=== PATIENT | male | born 1955 | race Hispanic/Latino ===

== ENCOUNTER → 2020-12-10 | Outpatient (CLI) | payer OTHER | END | disposition home or self-care (01) | LOC: RAH 08:03 | PROVIDERS: ATTEND Internal Medicine | DX: F17.200 Nicotine dependence, unspecified, uncomplicated (principal) | CPT/HCPCS: 76775 ==

== ENCOUNTER → 2021-02-02 | Outpatient (CLI) | payer OTHER ==
[~2021-02-02] MED LIST: IOHEXOL 350 MG/ML 100ML INFUS..BTL IV ONE
== END | disposition home or self-care (01) ==
LOC: RAH 07:35
PROVIDERS: ATTEND Internal Medicine Gastroenterology
DX: C18.7 Malignant neoplasm of sigmoid colon (principal); N20.0 Calculus of kidney
CPT/HCPCS: 74178; Q9967

== ENCOUNTER → 2021-02-10 | Outpatient (CLI) | payer OTHER | END | disposition home or self-care (01) | LOC: DAH 10:00 → EDSTATUS 02-16 09:15 | PROVIDERS: ATTEND Internal Medicine Gastroenterology | DX: U07.1 COVID-19 (principal); C18.7 Malignant neoplasm of sigmoid colon; R93.3 Abnormal findings on diagnostic imaging of other parts of digestive tract | CPT/HCPCS: 87426 ==

== ENCOUNTER 2021-03-30 06:25 | Day surgery (SDC) | payer OTHER ==
[~2021-03-30] VITALS: Ht 172.7 cm; Wt 88.0 kg
[~2021-03-30 06:25] MED LIST changes: +0.9%NACL 1000ML 1,000 ML IV ONE; +AEC81 PO; +ASCO100031 PO; +ATOR20TA65 PO; +CALC-1009 PO; +CYAN50009 PO; -IOHEXOL 350 MG/ML 100ML INFUS..BTL IV ONE; +LISI20TA24 PO; +METF-526 PO; +MV-M1TAB20 PO; +SAW450CA7 PO; +ZINC220T4 PO
[2021-03-30 07:30] VITALS: BP 122/62
[2021-03-30] MEDS ORDERED: FISHOIL PO (07:53)
[2021-03-30] MEDS ORDERED: PROPOFOL 10 MG/ML 20ML VIAL IV ONE (08:14)
[2021-03-30] MEDS ORDERED: EPHEDRINE SULFATE 50 MG/ML AMPULE ONE (08:26)
[2021-03-30 08:30] VITALS: BP 120/68
[2021-03-30 08:35] VITALS: BP 108/57
[2021-03-30 08:40] VITALS: BP 108/54
[2021-03-30 08:45] VITALS: BP 108/60
== END 2021-03-30 09:00 | disposition home or self-care (01) ==
LOC: DAH 06:25 → ENDO 06:25
PROVIDERS: ATTEND Internal Medicine Gastroenterology
DX: R93.3 Abnormal findings on diagnostic imaging of other parts of digestive tract (principal); C18.7 Malignant neoplasm of sigmoid colon; Z20.822 Contact with and (suspected) exposure to COVID-19; K62.89 Other specified diseases of anus and rectum; K59.04 Chronic idiopathic constipation; I10 Essential (primary) hypertension; E11.9 Type 2 diabetes mellitus without complications; E78.5 Hyperlipidemia, unspecified; F17.210 Nicotine dependence, cigarettes, uncomplicated; Z79.84 Long term (current) use of oral hypoglycemic drugs; Z79.82 Long term (current) use of aspirin; Z79.899 Other long term (current) drug therapy
CPT/HCPCS: 45341; 82948 ×2; 87635; 93005; A4215 ×2; A4221; A4222; A4223; A4606; A4620; A4657; A4663; C9803; J2704; J3490; J7030

== ENCOUNTER → 2023-05-29 | Outpatient (CLI) | payer OTHER ==
[~2023-05-29] MED LIST changes: -0.9%NACL 1000ML 1,000 ML IV ONE; -CALC-1009 PO; +FISHOIL PO
[2023-05-29 16:35] LABS: CHOLESTEROL 131 mg/dL (<200); HDL CHOLESTEROL 69 mg/dL (29-71); HEMOGLOBIN A1C 6.9 % (4.0-6.0); LDL DIRECT 63 mg/dL (0-99); TRIGLYCERIDES 73 mg/dL (30-200)
== END | disposition home or self-care (01) ==
LOC: LAB 11:51
PROVIDERS: ATTEND Student in an Organized Health Care Education/Training Program
DX: I10 Essential (primary) hypertension (principal); I25.10 Atherosclerotic heart disease of native coronary artery without angina pectoris; E78.5 Hyperlipidemia, unspecified; Z79.899 Other long term (current) drug therapy
CPT/HCPCS: 36415; 80061; 83036

== ENCOUNTER → 2023-06-10 | Outpatient (CLI) | payer OTHER | END | disposition home or self-care (01) | LOC: SHCH 09:06 | PROVIDERS: ATTEND Student in an Organized Health Care Education/Training Program | DX: Z13.6 Encounter for screening for cardiovascular disorders (principal) | CPT/HCPCS: 93978 ==

== ENCOUNTER → 2023-06-14 | Outpatient (CLI) | payer OTHER | END | disposition home or self-care (01) | LOC: RAH 13:36 | PROVIDERS: ATTEND Student in an Organized Health Care Education/Training Program | DX: I37.1 Nonrheumatic pulmonary valve insufficiency (principal); I25.10 Atherosclerotic heart disease of native coronary artery without angina pectoris | CPT/HCPCS: 93306 ==